=== PATIENT | female | born 1970 | race Caucasian/White ===

== ENCOUNTER 2017-08-28 17:33 | Emergency (ER) | payer BC, OTHER ==
[2017-08-28] MEDS: AMOXICILLIN 250 MG CAPSULE PO STA (18:01)
[2017-08-28] MEDS: LIDOCAINE VISCOUS 2% 15 ML UDC MM STA (18:01)
--- NOTE | 2017-08-28 18:02 | ED Physician Documentation ---
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 - Present Medications Home Medications: Ambulatory Orders Medication Instructions Recorded Confirmed Amoxicillin 500 mg PO Q8H #30 capsule 08/28/17 Fluticasone [Flonase] 1 sprays JAQUAN BID PRN #1 bottle 08/28/17 Lidocaine HCl [Lidocaine HCl 2 drops OT Q6H PRN #15 ml 08/28/17 Viscous] - Allergies Allergies/Adverse Reactions: Allergies Allergy/AdvReac Type Severity Reaction Status Date / Time No Known Drug Allergies Allergy Verified 08/28/17 17:44 - Social History Does the pt smoke?: No Smoking Status: Never smoker Does the pt drink ETOH?: No Does the pt have substance abuse?: No PD ED PE NORMAL - Vitals Vital signs reviewed: Yes - HEENT HEENT: No: Ears normal (R AOM - red bulging no landmarks, no vesicles) - Neck Neck: Supple, no meningeal sign - Cardiac Cardiac: RRR - Respiratory Respiratory: No respiratory distress Results - Vitals Vitals: Vital Signs - 24 hr 08/28/17 17:38 Temperature 36.1 C L Heart Rate 74 Respiratory 16 Rate Blood Pressure 127/84 H O2 Saturation 100 Oxygen O2 Source Room air Departure - Departure Disposition: Home, Self Care Clinical Impression: Otitis media Qualifiers: Otitis media type: suppurative Chronicity: acute Laterality: right Recurrence: not specified as recurrent Spontaneous tympanic membrane rupture: without spontaneous rupture Qualified Code(s): H66.001 - Acute suppurative otitis media without spontaneous rupture of ear drum, right ear Condition: Good Instructions: ED Otitis Media Acute Adult Prescriptions: Amoxicillin 500 mg PO Q8H #30 capsule Fluticasone [Flonase] 1 sprays JAQUAN BID PRN #1 bottle PRN Reason: congestion Lidocaine HCl [Lidocaine HCl Viscous] 2 drops OT Q6H PRN #15 ml PRN Reason: ear pain Comments: Take the antibiotic as prescribed. Use the flonase to decrease congestion and help open the Eustachian tube. You can also take sudafed or dayquil May use lidocaine drops and take tylenol / motrin as needed for the pain
[2017-08-28] MEDS ORDERED: LIDOCAINE VISCOUS 2% 15 ML UDC MM ONE (18:03)
[2017-08-28] MEDS ORDERED: AMOXICILLIN 250 MG CAPSULE PO ONE (18:04)
[2017-08-28 18:13] VITALS: BP 116/77
== END 2017-08-28 18:13 | disposition home or self-care (01) ==
LOC: ED 17:33
DX: H66.001 Acute suppurative otitis media without spontaneous rupture of ear drum, right ear (principal)
CPT/HCPCS: 99283

== ENCOUNTER 2017-09-24 08:00 | Outpatient (CLI) | payer OTHER ==
[2017-09-24 13:52] LABS: BASOPHILS # (AUTO) 0.1 10^3/uL (0.0-0.1); BASOPHILS % (AUTO) 0.9 %; EOSINOPHILS # (AUTO) 0.2 10^3/uL (0.0-0.7); EOSINOPHILS % (AUTO) 3.7 %; HCT - HEMATOCRIT 36.9 % (37.0-47.0); HGB - HEMOGLOBIN 12.2 g/dL (12.0-16.0); LYMPHOCYTES # (AUTO) 1.7 10^3/uL (1.5-3.5); LYMPHOCYTES % (AUTO) 29.3 %; MEAN CORPUSCULAR HEMOGLOBIN 31.5 pg (27.0-31.0); MEAN CORPUSCULAR HGB CONC 33.1 g/dL (32.0-36.0); MEAN CORPUSCULAR VOLUME 95.3 fL (81.0-99.0); MEAN PLATELET VOLUME 8.8 fL (7.9-10.8); MONOCYTES # (AUTO) 0.6 10^3/uL (0.0-1.0); MONOCYTES % (AUTO) 10.2 %; NEUTROPHILS # (AUTO) 3.2 10^3/uL (1.5-6.6); NEUTROPHILS % (AUTO) 55.9 %; RED BLOOD COUNT 3.88 10^6/uL (4.20-5.40); RED CELL DISTRIBUTION WIDTH 13.2 % (12.0-15.0); UNCORRECTED WHITE BLOOD COUNT 5.7 x10^3/uL; WHITE BLOOD COUNT 5.7 x10^3/uL (4.8-10.8)
[2017-09-24 14:05] LABS: CALCIUM 8.4 mg/dL (8.5-10.3); CARBON DIOXIDE - CO2 27 mmol/L (21-32); CHLORIDE 101 mmol/L (101-111); GLUCOSE 82 mg/dL (70-100); POTASSIUM 3.7 mmol/L (3.5-5.0); SODIUM 135 mmol/L (135-145)
[2017-09-24 14:25] LABS: ALBUMIN/GLOBULIN RATIO 1.1 (1.0-2.2); BILIRUBIN,TOTAL 0.4 mg/dL (0.2-1.0); BUN - BLOOD UREA NITROGEN 11 mg/dL (6-20); CHOL/HDL RATIO 2.3 (<4.4); CHOLESTEROL 162 mg/dL; CREATININE 0.8 mg/dL (0.4-1.0); GFR - MDRD 77 (>89); HDL CHOLESTEROL 72 mg/dL; LDL/HDL RATIO 1.1 (<4.4); TRIGLYCERIDES 59 mg/dL; VLDL CHOLESTEROL 12 mg/dL
[2017-09-24 15:49] LABS: HEMOGLOBIN A1C 0.45 g/dL
== END 2017-09-24 08:01 | disposition home or self-care (01) ==
LOC: LAB.WCP 08:00
PROVIDERS: ATTEND Family Medicine
DX: Z00.00 Encounter for general adult medical examination without abnormal findings (principal)
CPT/HCPCS: 36415; 80053; 80061; 83036; 84443; 85025